=== PATIENT | male | born 1975 | race Caucasian/White ===

== ENCOUNTER 2021-06-02 22:51 | Inpatient (IN) | payer OTHER ==
[~2021-06-02] VITALS: Ht 167.6 cm; Wt 99.0 kg
[2021-06-02 23:33] LABS: BASOPHIL 0.2 % (0-2); EOSINOPHIL 0 % (0-5); HCT 42.3 % (42.0-52.0); HGB 14.4 g/dl (13.2-18.0); LYMPHOCYTE 5.3 % (15-48); MCV 88.1 fL (78.0-100.0); MONOCYTE 2.6 % (0-12); MPV 12.1 fL (6.0-9.5); NEUTROPHIL 91.5 % (41-80); NRBC 0; PLT 207 K/uL (150-400); RDW 14.5 % (11.5-14.0); WBC 9.1 K/uL (4.0-10.5)
[2021-06-03] LABS: PRO-BNP 179 pg/mL (<125)
[2021-06-03 00:21] LABS: LACTIC ACID 1.8 mmol/L (0.4-1.9)
[2021-06-03 00:24] LABS: ALBUMIN 3.1 g/dL (3.4-5.0); ALKALINE PHOSHATASE 57 U/L (46-116); ALT 78 U/L (16-63); AST 55 U/L (15-37); BILIRUBIN - TOTAL 0.5 mg/dL (0.2-1.0); BUN 14 mg/dL (7-18); BUN/CREAT RATIO (CALC) 13.3 RATIO; C-REACTIVE PROTEIN >18.00 mg/dL (<=0.90); CHLORIDE 96 mmol/L (98-107); CO2 (BICARBONATE) 26 mmol/L (21-32); CREATININE 1.05 mg/dL (0.67-1.17); GLOBULIN (CALCULATION) 3.6 g/dL; GLUCOSE 154 mg/dL (74-106); LDH 380 U/L (85-227); TOTAL PROTEIN 6.7 g/dL (6.4-8.2)
[2021-06-03 04:52] LABS: BILIRUBIN NEGATIVE (NEGATIVE); BLOOD TRACE-INTACT Ery/uL (NEGATIVE); CLARITY CLEAR (CLEAR); COLOR STRAW (YELLOW); GLUCOSE (U) NORMAL (NORMAL); LEUKOCYTES NEGATIVE Leu/uL (NEGATIVE); NITRITE NEGATIVE (NEGATIVE); PROTEIN 1+ mg/dL (NEGATIVE); SPECIFIC GRAVITY 1.015 (1.001-1.030); UROBILINOGEN 0.2 mg/dL (0.2-1.0)
[2021-06-03 04:57] LABS: BACTERIA TRACE; URINARY RBC RARE; URINARY WBC RARE
--- NOTE | 2021-06-03 18:40 | NUR ---
PATIENT RECEIVED FROM EMERGENCY DEPARTMENT. REPORT FROM FAN CASTRO
[2021-06-04 07:16] LABS: BASOPHIL 0.1 % (0-2); EOSINOPHIL 0 % (0-5); HCT 40.8 % (42.0-52.0); HGB 13.6 g/dl (13.2-18.0); LYMPHOCYTE 8.6 % (15-48); MCHC 33.3 g/dL (32.0-36.0); MCV 90.1 fL (78.0-100.0); MONOCYTE 4.5 % (0-12); MPV 12.1 fL (6.0-9.5); NEUTROPHIL 86.1 % (41-80); NRBC 0; PLT 251 K/uL (150-400); RBC 4.53 M/uL (4.70-6.00); RDW 15.1 % (11.5-14.0); WBC 9.1 K/uL (4.0-10.5)
[2021-06-04 07:44] LABS: ALBUMIN 2.5 g/dL (3.4-5.0); BILIRUBIN - TOTAL 0.5 mg/dL (0.2-1.0); BUN/CREAT RATIO (CALC) 24.7 RATIO; CREATININE 0.97 mg/dL (0.67-1.17); GLOBULIN (CALCULATION) 4.2 g/dL; POTASSIUM 4.8 mmol/L (3.5-5.1); TOTAL PROTEIN 6.7 g/dL (6.4-8.2)
--- NOTE | 2021-06-04 12:46 | NUR ---
MD NOTIFIED OF PT VITALS AT THIS TIME BY TELEPHONE. BP 154/86 MAP 110, HR 86 RR 39 O2 85%. MD STATED TO MONITOR PT CLOSELY.
--- NOTE | 2021-06-04 13:30 | NUR ---
PT GIVEN MEDICATION FOR SEDATION AT THIS TIME. MD BEGAN INTUBATION. PT VITALS ARE 213/91 MAP 137 HR 93 O2 61% ON BIPAP 100% FIO2. ET TUBE PLACED BUT PT BIT CUFF AND DEFLATED IT, O2 SATS TRENDING DOWN TO 48%, A CODE WAS CALLED AT THIS TIME WHILE MD TOOK A BOUGIE TO REPLACE ET TUBE. 1352- A SECOND INTUBATION ATTEMPT WAS MADE BY MD TO REPLACE ET TUBE. PT PLACED ON VENT AND CURRENT VITALS ARE BP 257/105 HR 106 RR 33 O2 88%. MD NOTIFIED OF VITALS AT 1440. NO ORDERED VERSED PUSH AND FETANYL IVP. 1415- PTS WAS NOTIFIED OF INTUBATION, CURRENT VITALS, AND STATUS.
--- NOTE | 2021-06-04 16:42 | NUR ---
06/04/21 Will monitor for discharge planning needs.
--- NOTE | 2021-06-04 22:48 | NUR ---
PT BELONGINGS SENT HOME WITH FAMILY FRIEND LEEANN RAMESH, PT [employer], CELL PHONE, AND CLOTHES.
[2021-06-05 07:54] LABS: BASOPHIL 0.1 % (0-2); EOSINOPHIL 0 % (0-5); HCT 35.5 % (42.0-52.0); HGB 11.7 g/dl (13.2-18.0); LYMPHOCYTE 10.8 % (15-48); MONOCYTE 5.7 % (0-12); MPV 11.8 fL (6.0-9.5); NEUTROPHIL 82.2 % (41-80); NRBC 0; PLT 268 K/uL (150-400); RDW 15.2 % (11.5-14.0); WBC 7.7 K/uL (4.0-10.5)
[2021-06-05 09:08] LABS: ALBUMIN 2.1 g/dL (3.4-5.0); BILIRUBIN - TOTAL 0.4 mg/dL (0.2-1.0); BUN/CREAT RATIO (CALC) 25.6 RATIO; C-REACTIVE PROTEIN 17.8 mg/dL (<=0.90); CREATININE 0.82 mg/dL (0.67-1.17); TOTAL PROTEIN 6.1 g/dL (6.4-8.2)
[2021-06-05 09:50] LABS: MAGNESIUM 2.6 mg/dL (1.8-2.4)
--- NOTE | 2021-06-05 10:35 | NUR ---
0942 PATIENT TRANSPORTED BY [facility] TO [facility]. PATIENT SENT ON PROPOFOL WITH 60 LEFT IN BOTTLE AND VERSED WITH 80 ML LEFT IN BAG. ATTEMPTED TO CALL FAMILY AND DID NOT REACH. REPORT CALLED TO GABRIELA AT [facility]
== END 2021-06-05 09:42 | disposition other institution (70) | DRG 208 ==
LOC: FER 22:51 → FICU 06-03 17:20
PROVIDERS: Emergency Medicine; Internal Medicine; Nurse Practitioner; ADMIT Internal Medicine
PROC: XW033E5 Introduction of Remdesivir Anti-infective into Peripheral Vein, Percutaneous Approach, New Technology Group 5 (ICD-10-PCS; principal; 2021-06-03)
PROC: 8E0ZXY6 Isolation (ICD-10-PCS; 2021-06-03)
PROC: 5A09457 Assistance with Respiratory Ventilation, 24-96 Consecutive Hours, Continuous Positive Airway Pressure (ICD-10-PCS; 2021-06-03)
PROC: 5A1935Z Respiratory Ventilation, Less than 24 Consecutive Hours (ICD-10-PCS; 2021-06-04)
PROC: 0BH17EZ Insertion of Endotracheal Airway into Trachea, Via Natural or Artificial Opening (ICD-10-PCS; 2021-06-04)
DX: U07.1 COVID-19 (principal); J12.82 Pneumonia due to coronavirus disease 2019; J96.01 Acute respiratory failure with hypoxia; I10 Essential (primary) hypertension; Z87.442 Personal history of urinary calculi
CPT/HCPCS: 31500; 36415; 36600; 71045; 71250; 74018; 80053; 81001; 82728; 82803; 83605; 83615; 83735; 83880; 84145; 84484; 85025; 86140; 93005; 94002; 94640; 94660; 94762; 96372; C9113; C9399; J1100; J1650; J1885; J2060; J2704; J3010; J3480; J3490; J7030; J7050; U0002